=== PATIENT | female | born 1955 | race Caucasian/White ===

== ENCOUNTER 2016-10-31 18:33 | Emergency (ER) | payer OTHER ==
--- NOTE | ~2016-10-31 | CR63 ---
[facility] A Service [facility] RADIOLOGY TEXT RESULTS PATIENT: LYNN HUDSON LOCATION: SED : 57 UNIT #: [id number] AGE: [address]: SARATH POLANCO SEX: F ORDER DR: [id number] [place] [id number] E MR#: [id number] Acc #: [id number] NAME: LYNN HUDSON. : 1955 SEX: F STUDY DATE/TIME: 10/31/2016 19:22 UNIT: SED ROOM: STUDY DESCRIPTION: CR Chest 2 View Attending Physician: Sarath Polanco Aprn Ordering Physician: Sarath Polanco Aprn Primary Care Physician: Logan Ontiveros M.D. MEDICAL IMAGING REPORT This report is preliminary unless electronic signature is present. EXAM Chest 2 views, 10/31/2016 COMPARISON Chest 2 views 04/17/2016 HISTORY Cough, congestion and headache for 2 days. History of breast cancer. FINDINGS 2 views of the chest were obtained. There does not appear to be any significant interval change when compared to the prior chest x-ray from 04/17/2016. Redemonstrated are the prominent bilateral giacomo with mild infrahilar opacities and minimal horizontally linear subsegmental atelectasis in the left lateral mid lung zone and in the left lateral lower lung zones. Diffuse minimal prominence of the interstitial markings could be related to the technique but it appears also stable and mild underlying chronic interstitial lung disease cannot be excluded. IMPRESSION No significant change when compared to the prior chest x-rays from 04/17/2016. No new abnormality. Dictated by... Quita Awan M.D. THIS IS AN ELECTRONICALLY VERIFIED REPORT Quita Awan M.D. at 11/01/2016 5:13 PM [facility] A Service [facility] RADIOLOGY TEXT RESULTS PATIENT: LYNN HUDSON LOCATION: SED : 57 UNIT #: [id number] AGE: [address]: SARATH POLANCO SEX: F ORDER DR: TD: 11/01/2016 05:00 JOB #: [id number] MEDICAL IMAGING REPORT Page 1 of 1
[~2016-10-31 18:33] MED LIST: ALPRAZOLAM PO; AMARYL PO; AMBIEN10 MG PO; AMOXICILLIN PO; ANASTROZOLE1 MG PO; ANORO ELLIPTA1 EACH INH; ASPIRIN PO; ASPIRIN325 M1 PO; ASPIRIN81 M2; BENICAR HCT 20-1 TA1 PO; BUMEX1 MG PO; CALCIUM PO; CHANTIX PO; CLINDAMYCIN HC300 MG PO; COUMADIN10 MG PO; COZAAR; DICLOFENAC PO; GLUCOPHAGE500 MG; GLUCOPHAGE500 MG PO; LOPRESSOR PO; MACROBID100 MG PO; MACRODANTIN PO; METFORMIN PO; METOPROLOL PO; METOPROLOL SUCC50 MG PO; METOPROLOL TART25 MG PO; MULTAQ400 MG PO; PAROXETINE HCL20 M1 PO; PAXIL CR25 MG PO; PAXIL PO; PAXIL10 MG PO; PRADAXA150 MG; PRADAXA150 MG PO; PREMPRO 0.625/21 TAB PO; PYRIDIUM PO; ROBITUSSIN ALL118 ML PO; SPIRIVA18 MCG; SPIRIVA18 MCG PO; VITAMIN D PO; VOLTAREN75 MG PO; WARFARIN SODIUM10 MG PO
== END 2016-10-31 20:54 | disposition home or self-care (01) ==
LOC: SED 18:33
DX: J01.90 Acute sinusitis, unspecified (principal); E11.9 Type 2 diabetes mellitus without complications; J44.9 Chronic obstructive pulmonary disease, unspecified; I48.91 Unspecified atrial fibrillation; Z90.49 Acquired absence of other specified parts of digestive tract; F17.210 Nicotine dependence, cigarettes, uncomplicated; Z79.899 Other long term (current) drug therapy
CPT/HCPCS: 71020; 94640; 99284